=== PATIENT | male | born 2000 | race Caucasian/White ===

== ENCOUNTER 2023-08-05 13:24 | Emergency (ER) | payer SELFPAY ==
[2023-08-05] MEDS ORDERED: Ibuprofen 400 MG Tab PO ONE (15:23)
== END 2023-08-05 16:19 | disposition home or self-care (01) ==
LOC: MW.ED 13:24
DX: M25.562 Pain in left knee (principal)
CPT/HCPCS: 73552; 73562; 99283; A9270

== ENCOUNTER 2023-09-10 12:10 | Emergency (ER) | payer SELFPAY | END 2023-09-10 13:11 | disposition home or self-care (01) | LOC: MW.ED 12:10 | DX: S60.111A Contusion of right thumb with damage to nail, initial encounter (principal); Z75.8 Other problems related to medical facilities and other health care; W23.0XXA Caught, crushed, jammed, or pinched between moving objects, initial encounter; Y99.0 Civilian activity done for income or pay | CPT/HCPCS: 73130-26-RT; 73130-RT; 99282; 99283 ==